=== PATIENT | male | born 1960 | race Caucasian/White ===

== ENCOUNTER 2018-04-28 15:41 | Outpatient (REF) | payer MEDICAID, SELFPAY ==
[2018-04-28 19:04] LABS: BUN 20 mg/dL (7-18); CREATININE 0.96 mg/dL (0.70-1.30); Calcium 9.2 mg/dL (8.5-10.1); Chloride 102 mmol/L (98-107); Glucose 81 mg/dL (70-100); HCT 53.4 % (40.0-50.0); HGB 18.4 g/dL (13.5-17.5); Mean Corp. HGB Concentration 34.5 g/dL (32.0-36.0); Mean Corpuscular Volume 92.9 fL (80-95); Mean Platelet Volume 11.2 fL (8.0-11.0); Platelet Count 149 x1000/uL (130-400); RBC 5.75 m/cumm (4.50-6.00); RBC Distribution Width 13.2 % (11.8-14.1); Sodium 141 mmol/L (136-145); White Blood Cell Count 13.43 k/cumm (4.4-10.8)
== END 2018-04-28 16:01 ==
LOC: NCHCN 15:41
PROVIDERS: PCP Internal Medicine; Visit Provider Internal Medicine
DX: D75.1 Secondary polycythemia (principal)
CPT/HCPCS: 80048; 85027

== ENCOUNTER 2021-11-17 17:10 | Outpatient (REF) | payer MEDICAID, SELFPAY ==
[2021-11-17 18:41] LABS: HCT 52.5 % (40.0-50.0); HGB 18.1 g/dL (13.5-17.5); MCH 31.9 pg (27.0-33.0); MCHC 34.5 % (32.0-36.0); MCV 93 fL (80-95); MPV 12.2 fL (8.0-11.0); Platelet Count 154 10^3/uL (130-400); RBC 5.67 10^6/uL (4.36-5.78); RDW 13.2 % (11.8-14.1); WBC 8.46 10^3/uL (4.4-10.8)
[2021-11-17 19:06] LABS: Salicylate < 2.8 mg/dL (<2.8)
[2021-11-17 19:15] LABS: ALT 47 U/L (16-63); AST 24 U/L (15-37); Albumin 4.6 g/dL (3.4-5.0); Alkaline Phosphatase 78 U/L (46-116); Anion Gap 8.8 mmol/L (3-11); BUN 29 mg/dL (7-18); CO2 25.2 mmol/L (21.0-32.0); CREATININE 1.1 mg/dL (0.70-1.30); Calcium 9.9 mg/dL (8.5-10.1); Chloride 106 mmol/L (98-107); Glucose 85 mg/dL (74-106); Potassium 4.5 mmol/L (3.5-5.1); Sodium 140 mmol/L (136-145); Total Protein 7.8 g/dL (6.4-8.2)
== END 2021-11-17 17:11 | disposition home or self-care (01) ==
LOC: NCHCN 17:10
PROVIDERS: PCP Internal Medicine; Visit Provider Internal Medicine
DX: D75.1 Secondary polycythemia (principal); K21.9 Gastro-esophageal reflux disease without esophagitis; M43.02 Spondylolysis, cervical region
CPT/HCPCS: 80053; 85027; 80329